=== PATIENT | female | born 1970 | race Two or more races ===

== ENCOUNTER → 2016-10-17 | Outpatient (CLI) | payer BC ==
[2013-10-27 17:46] VITALS: BP 117/52
[~2016-10-17] MED LIST: MULT-245 PO
--- NOTE | 2016-10-17 08:42 | KCIC ---
Indication: Left lower quadrant pain. Midline structures are somewhat limited due to overlying bowel gas. Pancreas is grossly unremarkable. Aorta and IVC are unremarkable. The liver is normal in size. No discrete liver mass is detected. The gallbladder is without stones or sludge. No wall thickening or pericholecystic fluid is seen. No biliary ductal dilatation is seen. The spleen is normal in size. The right and left kidneys are unremarkable. There is no ascites. IMPRESSION: Unremarkable abdominal ultrasound. Electronically signed by: Tyrone Hernandez MD (10/17/2016 8:39 AM) [id number]
== END | disposition home or self-care (01) ==
LOC: KCIC US 07:50
PROVIDERS: ATTEND Nurse Practitioner Occupational Health
DX: R10.32 Left lower quadrant pain (principal)
CPT/HCPCS: 76700